=== PATIENT | female | born 1985 ===

== ENCOUNTER → 2024-02-09 | Outpatient (CLI) | payer OTHER ==
[2024-02-09 19:13] LABS: Hematocrit 37.4 % (33.0-51.0); Hemoglobin 12.8 g/dL (11.5-16.0)
== END ==
LOC: LAB 17:44 → LAB SHORT 17:44
PROVIDERS: Registered Nurse Community Health
DX: Z34.92 Encounter for supervision of normal pregnancy, unspecified, second trimester (principal)
CPT/HCPCS: 82950; 85014; 85018

== ENCOUNTER 2024-05-16 09:14 | Inpatient (IN) | payer OTHER ==
[2024-05-16] VITALS (17 sets, daily range): BP systolic 103–126; BP diastolic 53–77
[~2024-05-16] VITALS: Ht 162.6 cm; Wt 88.0 kg
[2024-05-16] MEDS ORDERED: OXYTOCIN/RINGER'S LACTATE 500 ML IV PRN (09:55)
[2024-05-16] MEDS ORDERED: Ondansetron HCl 2 MG / ML 2ML Vial IV PRN (09:55)
[2024-05-16] MEDS ORDERED: Lactated Ringer's 1,000 ML IV SCH ×3 (09:55→18:15)
[2024-05-16] MEDS ORDERED: Acetaminophen 500 MG Tab PO PRN (09:55)
[2024-05-16] MEDS ORDERED: Tranexamic Acid 100 ML IV SCH (09:55)
[2024-05-16] MEDS ORDERED: Lactated Ringer's 1,000 ML IV PRN (09:55)
[2024-05-16] MEDS ORDERED: ePHEDrine Sulfate 50 MG/ML 1ML Injection XX PRN (09:55)
[2024-05-16] MEDS ORDERED: Misoprostol 200 MCG Tab PR PRN ×2 (09:55→18:05)
[2024-05-16] MEDS ORDERED: Methylergonovine Maleate 0.2MG / ML 1ML Amp IM PRN ×2 (09:55→18:15)
[2024-05-16] MEDS ORDERED: Oxytocin 10 Unit / ML Vial IM PRN (09:55)
[2024-05-16] MEDS ORDERED: Carboprost Tromethamine 250 MCG/ML 1ML Amp IM PRN (09:55)
[2024-05-16] MEDS ORDERED: FentaNYL 2mcg/ml-Bup 0.1% Epd 250 ML EPI PRN (09:55)
[2024-05-16] MEDS ORDERED: Misoprostol 200 MCG Tab BC PRN (09:55)
[2024-05-16] MEDS ORDERED: Calcium Carbonate 500 MG Tab Chew PO SCH (10:00)
[2024-05-16] MEDS ORDERED: Methylergonovine Maleate 0.2MG / ML 1ML Amp ONE (10:16)
[2024-05-16] MEDS ORDERED: Lactated Ringer's 1,000 ML IV ONE (10:16)
[2024-05-16 11:22] LABS: BASOPHILS ABSOLUTE AUTO 0.04 K/mm3 (0.00-0.23); BASOPHILS PERCENT AUTO 0 % (0-2); EOSINOPHILS ABSOLUTE AUTO 0.11 K/mm3 (0.00-0.68); EOSINOPHILS PERCENT AUTO 1 % (0-6); Hematocrit 39.4 % (33.0-51.0); Hemoglobin 13.5 g/dL (11.5-16.0); IMMATURE GRAN ABSOLUTE AUTO 0.05 K/mm3 (0.00-0.10); IMMATURE GRAN PERCENT AUTO 1 % (0-1); LYMPHOCYTES ABSOLUTE AUTO 1.75 K/mm3 (0.84-5.20); LYMPHOCYTES PERCENT AUTO 18 % (21-46); MONOCYTES ABSOLUTE AUTO 0.69 K/mm3 (0.16-1.47); MONOCYTES PERCENT AUTO 7 % (4-13); Mean Corpuscular HGB 33.2 pg (26.0-34.0); Mean Corpuscular HGB Conc 34.3 g/dL (31.5-36.5); Mean Corpuscular Volume 97 fL (80-100); Mean Platelet Volume 11.4 fL (9.1-12.4); NEUTROPHILS ABSOLUTE AUTO 6.88 K/mm3 (1.96-9.15); NEUTROPHILS PERCENT AUTO 72 % (41-73); Platelet Count 167 K/mm3 (150-400); RDW Coefficient Variation 12.7 % (11.7-14.2); RDW Standard Deviation 45.1 fL (35.1-46.3); Red Blood Cell Count 4.07 M/mm3 (3.80-5.20); White Blood Cell Count 9.52 K/mm3 (4.00-11.30)
--- NOTE | 2024-05-16 17:37 | NUR ---
PLACENTA REMAINS RETAINED
[2024-05-16] MEDS ORDERED: OXYTOCIN/RINGER'S LACTATE 500 ML IV SCH (18:05)
[2024-05-16] MEDS ORDERED: Oxytocin 10 Unit / ML Vial IM ONE (18:05)
[2024-05-16] MEDS ORDERED: OxyCODONE 5 mg/Acetamin 325 mg TABLET PO PRN (18:05)
[2024-05-16] MEDS ORDERED: Acetaminophen 325 MG TABLET PO PRN (18:05)
[2024-05-16] MEDS ORDERED: Witch Hazel/Glycerin PADS TOP PRN (18:10)
[2024-05-16] MEDS ORDERED: FLU VACC TS2024-25(6MOS UP)/PF 45 MCG/0.5 ML SYRINGE IM SCH (18:10)
[2024-05-16] MEDS ORDERED: Docusate Sodium 100 MG Cap PO PRN (18:10)
[2024-05-16] MEDS ORDERED: Benzocaine Topical Anesthetic Spray 60GM TOP PRN (18:10)
[2024-05-16] MEDS ORDERED: Ibuprofen 400 MG Tab PO PRN (18:10)
[2024-05-16] MEDS ORDERED: Ketorolac Tromethamine 30mg Vial IV PRN (18:10)
[2024-05-16] MEDS ORDERED: Measles/Mumps/Rubella Vaccine 0.5 ML Vial SC SCH (18:15)
[2024-05-17 04:02] VITALS: BP 113/71
[2024-05-17 06:06] LABS: BASOPHILS ABSOLUTE AUTO 0.03 K/mm3 (0.00-0.23); BASOPHILS PERCENT AUTO 0 % (0-2); EOSINOPHILS ABSOLUTE AUTO 0.15 K/mm3 (0.00-0.68); EOSINOPHILS PERCENT AUTO 1 % (0-6); Hematocrit 34.6 % (33.0-51.0); Hemoglobin 12.1 g/dL (11.5-16.0); IMMATURE GRAN ABSOLUTE AUTO 0.06 K/mm3 (0.00-0.10); IMMATURE GRAN PERCENT AUTO 1 % (0-1); LYMPHOCYTES ABSOLUTE AUTO 2.09 K/mm3 (0.84-5.20); LYMPHOCYTES PERCENT AUTO 16 % (21-46); MONOCYTES ABSOLUTE AUTO 0.91 K/mm3 (0.16-1.47); MONOCYTES PERCENT AUTO 7 % (4-13); Mean Corpuscular HGB 34.1 pg (26.0-34.0); Mean Corpuscular Volume 98 fL (80-100); Mean Platelet Volume 11.5 fL (9.1-12.4); NEUTROPHILS ABSOLUTE AUTO 9.49 K/mm3 (1.96-9.15); NEUTROPHILS PERCENT AUTO 75 % (41-73); Platelet Count 159 K/mm3 (150-400); RDW Coefficient Variation 12.7 % (11.7-14.2); RDW Standard Deviation 45.3 fL (35.1-46.3); Red Blood Cell Count 3.55 M/mm3 (3.80-5.20); White Blood Cell Count 12.73 K/mm3 (4.00-11.30)
[2024-05-17 07:41] VITALS: BP 127/80
[2024-05-17] MEDS ORDERED: Prenatal Vit/FE Fumarate/FA 1 Tab PO SCH (09:00)
[2024-05-17 11:07] VITALS: BP 109/74
[2024-05-17 17:01] VITALS: BP 123/80
== END 2024-05-17 18:00 | disposition home or self-care (01) | DRG 807 ==
LOC: OBS 09:14 → BC 09:14 → OBS 09:40 → BC 09:41
PROVIDERS: Registered Nurse; ADMIT Registered Nurse Community Health
PROC: 10E0XZZ Delivery of Products of Conception, External Approach (ICD-10-PCS; principal; 2024-05-16)
PROC: 0HQ9XZZ Repair Perineum Skin, External Approach (ICD-10-PCS; 2024-05-16)
DX: O48.0 Post-term pregnancy (principal); Z37.0 Single live birth; Z67.20 Type B blood, Rh positive; Z3A.41 41 weeks gestation of pregnancy; Z79.899 Other long term (current) drug therapy; O70.0 First degree perineal laceration during delivery
CPT/HCPCS: 36415; 59025; 85025; 86850; 86900; 86901; 99214; A9270; J1885; J2590; J7120